=== PATIENT | male | born 1960 | race Caucasian/White ===

== ENCOUNTER 2021-01-23 14:50 | Outpatient (CLI) | payer OTHER, SELFPAY ==
--- NOTE | 2021-01-23 14:55 | XRR_ITS ---
PROCEDURE INFORMATION: Exam: XR Lumbosacral Spine Exam date and time: 01/23/2021 3:16 PM Age: 60 years old Clinical indication: Low back pain and lumbago with sciatica; Patient HX: Fell 3 years ago, pain in right hip ever since; Additional info: Chronic low back pain w/sciatica TECHNIQUE: Imaging protocol: XR of the lumbosacral spine. Views: 2 or 3 views. COMPARISON: No relevant prior studies available. FINDINGS: Bones/joints: 5 mm anterior subluxation of L3 on L4, secondary to degeneration of the facet joints. Vertebral body alignment is otherwise physiologic. Mild degenerative disc narrowing at L3-L4. Moderate degenerative disc narrowing at L4-L5. Degenerative facet joint changes are seen throughout the lumbar spine. No acute compression fractures noted. The SI joints are bilaterally symmetric. Soft tissues: The soft tissues appear unremarkable. XR/XR lumbar spine 2-3V* [id number] IMPRESSION: 1. Chronic degenerative lumbar spine changes, as above. 2. No acute abnormality demonstrated.
--- NOTE | 2021-01-23 14:55 | XRR_ITS ---
PROCEDURE INFORMATION: Exam: XR Right Hip Exam date and time: 01/23/2021 3:16 PM Age: 60 years old Clinical indication: Hip pain; Patient HX: Fell 3 years ago, pain in right hip ever since TECHNIQUE: Imaging protocol: XR Right hip. Views: 1 view hip with pelvis when performed. COMPARISON: No relevant prior studies available. FINDINGS: Bones/joints: SI joints and symphysis pubis are intact. No joint narrowing, dislocation, or effusion noted. No fracture or other acute osseous abnormality. Soft tissues: The soft tissues appear unremarkable. XR/XR hip RT 2-3V wo/w pel* [id number] IMPRESSION: Unremarkable right hip with AP pelvis radiographic series.
== END 2021-01-23 14:51 | disposition home or self-care (01) ==
PROVIDERS: PCP Internal Medicine; Visit Provider Nurse Practitioner Family
DX: M25.551 Pain in right hip (principal); M54.40 Lumbago with sciatica, unspecified side
CPT/HCPCS: 72100; 73502